=== PATIENT | female | born 1965 | race African-American/Black ===

== ENCOUNTER 2018-07-02 04:52 | Day surgery (SDC) | payer BC, OTHER ==
[2018-06-30 11:50] VITALS: BMI 29.2
[2018-07-02] MEDS ORDERED: LIDOCAINE HCL 1%, 10 MG/ML (20ML VIAL) ONE (08:03)
[2018-07-02] MEDS ORDERED: BUPIVACAINE HCL/PF 0.5% (5MG/ML) 10 ML VIAL ONE (08:04)
[2018-07-02] MEDS ORDERED: ONDANSETRON 4 MG/2 ML VIAL IVPUSH PRN (09:13)
[2018-07-02] MEDS ORDERED: oxyCODONE HCL 5 MG TABLET PO PRN (09:13)
[2018-07-02] MEDS ORDERED: LACTATED RINGERS SOLUTION 1,000 ML IV SCH (09:15)
--- NOTE | 2018-07-02 10:02 | HP ---
[facility] - Chief Complaint Chief Complaint: left wrist pain - Past Medical History Allergies/Adverse Reactions: Allergies Allergy/AdvReac Type Severity Reaction Status Date / Time No Known Allergies Allergy Verified 07/02/18 07:56 - Current Medications Current Medications: Home Medications Medication Instructions Recorded Hydrocodone/Acetaminophen [Hamel 1 each PO Q6H PRN #20 tablet MDD 4 07/02/18 5-325 Tablet] Satellite Physical Exam - Physical Examination Vital Signs: Vital Signs Period Temp Pulse Resp BP Sys/Martinez Pulse Ox Last 24 Hr 98.6 F 83 16 111/73 98 General Appearance: Well Nourished, Well Developed, Alert & Oriented x3 ENT: Clear Lung: Normal air movement Heart: Regular rate & rhythm Extremities: Other (left wrist- + ttp 1st dorsal wrist compartment, + colette, nvi) Neurological: Intact, Alert, Oriented Satellite Impression/Plan - Impression/Plan Impression: left dequervains tenosynovitis Operative Procedure: left dequervains release Date to be Performed: 07/02/18
[2018-07-02] MEDS ORDERED: ceFAZolin SODIUM 1 GM VIAL IVPB ONE (10:20)
[2018-07-02] MEDS ORDERED: LIDOCAINE HCL 1% PRESERVATIVE FREE - 30ML VIAL IJ ONE (10:38)
[2018-07-02] MEDS ORDERED: BUPIVACAINE HCL/PF (5 MG/ML) 30 ML VIAL IJ ONE (10:38)
--- NOTE | 2018-07-02 11:21 | OP ---
Operative Note - Note: Operative Date: 07/02/18 Pre-Operative Diagnosis: left Dequervain's Operation: left Dequervain's release, tendon sheath excision Post-Operative Diagnosis: Same as Pre-op Surgeon: Ra Marvin Business Analyst Consultant: Manpreet Walker Anesthesiologist/DIETETIC TECHNICIAN REGISTERED: Tahir Justin Anesthesia: Local, MAC Specimens Removed: tendon sheath Estimated Blood Loss (mls): 0 Drains, Volume Out (mls): 0 Blood Volume Replaced (mls): 0 Fluid Volume Replaced (mls): 500 Operative Report Dictated: Yes
[2018-07-02 11:25] VITALS: TEMP 98
[2018-07-02 12:07] VITALS: BP 122/70; PULSE 70
--- NOTE | 2018-07-02 13:19 | OP ---
DATE OF OPERATION: 07/02/2018 PREOPERATIVE DIAGNOSIS: Severe recurrent left De Quervain tenosynovitis. POSTOPERATIVE DIAGNOSIS: Severe recurrent left De Quervain tenosynovitis. PROCEDURE: Left De Quervain release and tendon sheath excision. SURGEON: Ra Marvin MD GUEST SERVICES AMBASSADOR: Manpreet Walker MD NURSE GUEST SERVICES AMBASSADOR: Tahir Justin CRNA. ANESTHESIA: MAC anesthesia, local injection of 12 mL of 0.5% Marcaine, 1% lidocaine mix. DRAINS: None. COMPLICATIONS: None. BLOOD LOSS: None. FLUID REPLACEMENT: 500 mL PlasmaLyte. INDICATION: The patient is a 53-year-old female with a preoperative diagnosis of a severe recurrent left De Quervain tenosynovitis. After understanding the potential risks, complications, alternatives, and benefits of the surgery versus nonsurgical treatment, the patient elected to undergo this procedure. She understands that the tendinitis may take a long time to go away. She may need postoperative physical therapy and/or a cortisone injection. There is a chance of recurrence and there is a chance of temporary permanent paresthesias. DESCRIPTION OF PROCEDURE: The patient was brought to the operating room, peripheral IV placed and IV sedation given. Ancef IV 2 g of were given. MAC anesthesia was induced. The left upper extremity was prepped and draped in a sterile fashion, elevated, exsanguinated with an Esmarch bandage and the tourniquet was inflated to 250 mmHg. Marcaine 12 mL of 0.5% and 1% lidocaine were mixed and were injected in and around the surgical incision. A longitudinal incision was made with a No. 15 scalpel blade. Subcutaneous hemostasis was achieved with a bipolar cautery. Dissection was done with blunted curved iris scissors. Great care was taken to find and protect all crossing neurovascular structures. A Earth elevator was used to free up the soft tissue adhesions to the first dorsal wrist compartment groove. Self-retaining retractors were placed into the wound. A fresh No. 15 scalpel blade was utilized to cut down through the roof of the first dorsal wrist compartment and a section of the roof of 2 mm in width was resected and passed off the field as specimen. The patient was seen to have single slips of the abductor pollicis longus and extensor pollicis brevis and there was no subsheath. There was some tenosynovium/synovitis which was removed and included in the specimen. The release was then completed distally and proximally first with the Littler scissors and then with a Earth elevator to check it. A Ragnell retractor was used to bring the tendons out through the wound to make sure that it was the correct compartment and also that there were no other points of adhesion there were not. They were copiously irrigated and washed out. Then 4-0 undyed Vicryl were closed to deep dermal layer. Final skin approximation was done with a running subcuticular 4-0 Biosyn sutures. The area was washed and dried and covered with Steri-Strips, 4 x 4s, fluffs, between the fingers, Webril and a 4-inch plaster roll was put on as a thumb spica splint, wrapped with Dutch and Coban. The total tourniquet time was 18 minutes. There were no complications during the case. The patient tolerated the procedure well and was brought to the ambulatory recovery in stable condition. Misty [id number]
--- NOTE | 2018-07-03 14:02 | PATH ---
Surgical Pathology Report Patient Name: JERMAINE JIMENES [facility]. Rec. #: [id number] /Age/Gender: 1965 (Age: 53) / F Account: [id number] Location: [facility] Taken: 07/02/2018 Received: 07/02/2018 Reported: 07/03/2018 Physicians: Manpreet Walker M.D. Specimen(s) Received TENDON SHEATH LEFT HAND Clinical History Left wrist pain Final Diagnosis TENDON SHEATH, HAND, LEFT, EXCISION: BENIGN DENSE FIBROUS AND CONNECTIVE TISSUE. Electronically Signed Meghna Salguero M.D. Gross Description Received in formalin labeled with "tendon sheet left hand", are 2 portions of irregular, white soft tissue measuring 0.5 x 0.4 x 1 cm in aggregate. The specimen is entirely submitted one cassette. FREDRICK/07/02/2018 thea/07/02/2018
== END 2018-07-02 11:55 | disposition home or self-care (01) ==
LOC: JASU-SURG 04:52
PROVIDERS: ATTEND Orthopaedic Surgery
PROC: 0LB60ZZ Excision of Left Lower Arm and Wrist Tendon, Open Approach (ICD-10-PCS; 2018-07-02)
PROC: 0LN60ZZ Release Left Lower Arm and Wrist Tendon, Open Approach (ICD-10-PCS; principal; 2018-07-02 08:00)
DX: M65.4 Radial styloid tenosynovitis [de Quervain] (principal)
CPT/HCPCS: 88304-TC